=== PATIENT | female | born 1955 | race African-American/Black ===

== ENCOUNTER 2018-02-22 11:27 | Observation (INO) ==
[2018-02-22] MEDS ORDERED: THIAMINE 200 MG/2 ML VIAL IV STA (12:01)
[2018-02-22 12:46] LABS: Basophils # 0.1 10*3/uL (0.0-0.2); Basophils % 0.5 % (0.0-0.8); Eosinophils % 0.2 % (0.00-10.9); Hematocrit 39.4 VOL% (35.7-47.0); Hemoglobin 12.9 GM/DL (12.0-16.0); Immature Granulocytes % 2.5 %; Immature Granulocytes Absolute 0.32 #; Lymphocytes # 2.8 10*3/uL (1.4-4.0); Lymphocytes % 22.2 % (21.3-54.2); Mean Corpuscular HGB Conc 32.7 GM/DL (32-36); Mean Corpuscular Hemoglobin 27 PG (27-34); Mean Corpuscular Volume 82.3 FL (87-102); Mean Platelet Volume 9.5 FL (9.6-12.0); Monocytes # 0.7 10*3/uL (0.11-0.8); Monocytes % 5.8 % (1.7-12.7); Neutrophils # 8.8 10*3/uL (1.4-7.4); Neutrophils % 68.8 % (38.7-73.9); Platelet Count 252 T/CUMM (130-400); Red Blood Count 4.79 MC/CUMM (3.8-5.5); Red Cell Distribution Width 14.4 % (9.3-17.3); White Blood Count 12.8 T/CUMM (4-12)
[2018-02-22 13:17] LABS: Apearance,Urine Slightly Hazy (Clear); Bilirubin,Urine Negative (Negative); Blood, Urine Negative (Negative); Glucose,Urine (UA) >=500 mg/dL (Negative); Ketones,Urine Negative (Negative); Nitrite,Urine Negative (Negative); Protein,Urine Negative; RBC,Urine 5 /HPF (0-4); Squamous Epithelial Cell,Urine Occasional /HPF (0-10); Urine Color Yellow (Yellow); Urine Specific Gravity 1.007 (1.001-1.035); Urine Urobilinogen < 2.0 EU/DL (0.2-1.0); WBC,Urine 56 /HPF (0-6)
[2018-02-22 13:18] LABS: Folate 14.3 NG/ML (5.4-24.0)
[2018-02-22 13:23] LABS: Barbiturates Screen,Urine Negative (Negative); Benzodiazepines Screen,Urine Negative (Negative); Cannabinoid Screen,Urine Positive (Negative); Opiate Screen,Urine Negative (Negative); Phencyclidine Screen,Urine Negative (Negative)
[2018-02-22 13:41] LABS: Alanine Aminotransferase 20 U/L (13-56); Albumin 3.1 G/DL (3.4-5.0); Alkaline Phosphatase 107 U/L (45-117); Aspartate Amino Transferase 19 U/L (0-37); Bilirubin,Total < 0.39 MG/DL (0.2-1.0); Blood Urea Nitrogen 8 MG/DL (7-18); Calcium 8.4 MG/DL (8.5-10.1); Glucose 185 MG/DL (74-106); Osmolality,Calculated 272.1 MOS/KG (273-304); Potassium 4.4 MMOL/L (3.5-5.1); Sodium 135 MMOL/L (136-145); Total Protein 5.8 G/DL (6.4-8.3)
[2018-02-22 13:54] LABS: Sedimentation Rate-Westergren 20 MM/HR (0-30)
[2018-02-22] MEDS ORDERED: ACETAMINOPHEN 325 MG TABLET PO PRN (18:08)
[2018-02-22] MEDS ORDERED: NICOTINE 21 MG/24 HR PATCH TRANSDERM PRN (18:08)
[2018-02-22] MEDS ORDERED: PROMETHAZINE 25 MG/1 ML VIAL IM PRN (18:08)
[2018-02-22] MEDS ORDERED: cefTRIAXone 1,000 MG in SYRINGE 1 EACH IV STA (18:13)
[2018-02-22 18:52] LABS: % Iron Saturation 28.3 % (18-50); Ferritin 163.3 ng/ml (8-252)
[2018-02-22 18:58] LABS: Thyroid Stimulating Hormone 0.397 uIU/ml (0.358-3.74)
[2018-02-22] MEDS ORDERED: DEXTROSE 50% 25 GM/50 ML VIAL IV PRN (19:12)
[2018-02-22] MEDS ORDERED: GLUCAGON 1 MG VIAL IM PRN (19:12)
[2018-02-22] MEDS ORDERED: INFLUENZA VIRUS VACCINE 0.5 ML SYRINGE IM ONE (19:21)
[2018-02-22] MEDS: SODIUM CHLORIDE 0.9% 1,000 ML IV SCH (19:22)
[2018-02-22] MEDS: GABAPENTIN 300 MG CAPSULE PO SCH (21:15)
[2018-02-22] MEDS: carBAMazepine 200 MG TABLET PO SCH (21:16)
[2018-02-22] MEDS: HYDROXYCHLOROQUINE 200 MG TABLET PO SCH (21:16)
[2018-02-22] MEDS: CARVEDILOL 6.25 MG TABLET PO SCH (21:16)
[2018-02-22] MEDS: INSULIN LISPRO 100 UNIT/ML SUBCUT SCH (21:37)
[2018-02-23 05:23] LABS: Basophils # 0.1 10*3/uL (0.0-0.2); Basophils % 0.7 % (0.0-0.8); Eosinophils # 0.1 10*3/uL (0.0-0.87); Hematocrit 37.3 VOL% (35.7-47.0); Hemoglobin 11.9 GM/DL (12.0-16.0); Immature Granulocytes % 1.9 %; Immature Granulocytes Absolute 0.22 #; Lymphocytes % 34.6 % (21.3-54.2); Mean Corpuscular HGB Conc 31.9 GM/DL (32-36); Mean Corpuscular Hemoglobin 26 PG (27-34); Mean Corpuscular Volume 82.7 FL (87-102); Mean Platelet Volume 9.6 FL (9.6-12.0); Monocytes % 8.6 % (1.7-12.7); Neutrophils # 6.1 10*3/uL (1.4-7.4); Neutrophils % 53.2 % (38.7-73.9); Platelet Count 240 T/CUMM (130-400); Red Blood Count 4.51 MC/CUMM (3.8-5.5); Red Cell Distribution Width 14.5 % (9.3-17.3); White Blood Count 11.5 T/CUMM (4-12)
[2018-02-23 05:38] LABS: Alanine Aminotransferase 15 U/L (13-56); Albumin 2.4 G/DL (3.4-5.0); Alkaline Phosphatase 91 U/L (45-117); Aspartate Amino Transferase 14 U/L (0-37); Bilirubin,Total < 0.39 MG/DL (0.2-1.0); Blood Urea Nitrogen 7 MG/DL (7-18); Calcium 7.9 MG/DL (8.5-10.1); Cholesterol 227 MG/DL (50-200); Glucose 177 MG/DL (74-106); HDL Cholesterol 95 MG/DL (40-60); Osmolality,Calculated 274.8 MOS/KG (273-304); Potassium 3.9 MMOL/L (3.5-5.1); Risk Ratio 2.39; Sodium 137 MMOL/L (136-145); Total Protein 5.1 G/DL (6.4-8.3); Triglycerides 212 MG/DL (2-150); VLDL CHOLESTEROL 42.4 MG/DL
[2018-02-23] MEDS ORDERED: MAGNESIUM SULF RIDER 2 GM in PREMIX 1 EACH IV ONE (07:12)
[2018-02-23] MEDS: INSULIN LISPRO 100 UNIT/ML SUBCUT SCH ×4 (10:55→21:49)
[2018-02-23] MEDS: GABAPENTIN 300 MG CAPSULE PO SCH (10:59)
[2018-02-23] MEDS: HYDROXYCHLOROQUINE 200 MG TABLET PO SCH ×2 (11:00→21:41)
[2018-02-23] MEDS: amLODIPine 10 MG TABLET PO SCH (11:00)
[2018-02-23] MEDS: predniSONE 20 MG TABLET PO SCH (11:00)
[2018-02-23] MEDS: valACYclovir 500 MG TABLET PO SCH (11:00)
[2018-02-23] MEDS: CARVEDILOL 6.25 MG TABLET PO SCH ×2 (11:00→17:37)
[2018-02-23] MEDS: sitaGLIPtin 100 MG TABLET PO SCH (11:00)
[2018-02-23] MEDS: carBAMazepine 200 MG TABLET PO SCH ×2 (11:01→21:41)
[2018-02-23] MEDS: PARoxetine 20 MG TABLET PO SCH (11:01)
[2018-02-23] MEDS: ATORVASTATIN 80 MG TABLET PO SCH (11:01)
[2018-02-23] MEDS: LOSARTAN 50 MG TABLET PO SCH (11:01)
[2018-02-23] MEDS: ASPIRIN EC 325 MG TABLET PO SCH (11:01)
[2018-02-23] MEDS: SODIUM CHLORIDE 0.9% 1,000 ML IV SCH (11:05)
[2018-02-23] MEDS: LIDOCAINE 5% PATCH TRANSDERM SCH (12:38)
[2018-02-23] MEDS ORDERED: cefTRIAXone 1,000 MG in SYRINGE 1 EACH IV SCH (18:00)
[2018-02-24] MEDS: SODIUM CHLORIDE 0.9% 1,000 ML IV SCH (01:22)
[2018-02-24 06:29] LABS: Basophils # 0.1 10*3/uL (0.0-0.2); Basophils % 0.5 % (0.0-0.8); Eosinophils # 0.1 10*3/uL (0.0-0.87); Eosinophils % 0.9 % (0.00-10.9); Hematocrit 38.4 VOL% (35.7-47.0); Hemoglobin 12.1 GM/DL (12.0-16.0); Immature Granulocytes % 1.4 %; Immature Granulocytes Absolute 0.14 #; Lymphocytes # 2.5 10*3/uL (1.4-4.0); Lymphocytes % 24.6 % (21.3-54.2); Mean Corpuscular HGB Conc 31.5 GM/DL (32-36); Mean Corpuscular Hemoglobin 26 PG (27-34); Mean Corpuscular Volume 82.9 FL (87-102); Mean Platelet Volume 10.1 FL (9.6-12.0); Monocytes # 0.8 10*3/uL (0.11-0.8); Monocytes % 8.1 % (1.7-12.7); Neutrophils # 6.6 10*3/uL (1.4-7.4); Neutrophils % 64.5 % (38.7-73.9); Platelet Count 264 T/CUMM (130-400); Red Blood Count 4.63 MC/CUMM (3.8-5.5); Red Cell Distribution Width 14.6 % (9.3-17.3); White Blood Count 10.2 T/CUMM (4-12)
[2018-02-24 06:58] LABS: Osmolality,Calculated 276.4 MOS/KG (273-304); Potassium 3.8 MMOL/L (3.5-5.1)
[2018-02-24] MEDS ORDERED: carBAMazepine 200 MG TABLET PO SCH (07:28)
[2018-02-24] MEDS: INSULIN LISPRO 100 UNIT/ML SUBCUT SCH ×2 (08:47→11:33)
[2018-02-24] MEDS: LIDOCAINE 5% PATCH TRANSDERM SCH (09:54)
[2018-02-24] MEDS: sitaGLIPtin 100 MG TABLET PO SCH (09:55)
[2018-02-24] MEDS: PARoxetine 20 MG TABLET PO SCH (09:55)
[2018-02-24] MEDS: HYDROXYCHLOROQUINE 200 MG TABLET PO SCH (09:55)
[2018-02-24] MEDS: predniSONE 20 MG TABLET PO SCH (09:55)
[2018-02-24] MEDS: ATORVASTATIN 80 MG TABLET PO SCH (09:55)
[2018-02-24] MEDS: valACYclovir 500 MG TABLET PO SCH (09:55)
[2018-02-24] MEDS: CARVEDILOL 6.25 MG TABLET PO SCH (09:55)
[2018-02-24] MEDS: ASPIRIN EC 325 MG TABLET PO SCH (09:56)
[2018-02-24] MEDS: amLODIPine 10 MG TABLET PO SCH (09:56)
[2018-02-24] MEDS: LOSARTAN 50 MG TABLET PO SCH (09:56)
[2018-02-24 12:02] VITALS: BP 179/71
== END 2018-02-24 12:51 | disposition home or self-care (01) ==
LOC: N.ED 11:27 → N.EDINP 11:27 → N.2E 19:12
PROVIDERS: ADMIT Internal Medicine; ATTEND Internal Medicine

== ENCOUNTER 2021-12-17 15:55 | Inpatient (IN) ==
[2021-12-17] MEDS ORDERED: SODIUM CHLORIDE 0.9% 1,000 ML IV STA (17:35)
[2021-12-17] MEDS ORDERED: ONDANSETRON 4 MG/2 ML VIAL IV ONE (17:35)
[2021-12-17] MEDS ORDERED: ACETAMINOPHEN 325 MG TABLET PO ONE (17:35)
[2021-12-17 17:49] LABS: Basophils # 0.1 10*3/uL (0.0-0.2); Basophils % 0.3 % (0.0-0.8); Hemoglobin 12.1 GM/DL (12.0-16.0); Immature Granulocytes % 0.9 %; Lymphocytes # 1.5 10*3/uL (1.4-4.0); Lymphocytes % 7.2 % (21.3-54.2); Mean Corpuscular HGB Conc 33.6 GM/DL (32-36); Mean Platelet Volume 9.6 FL (9.6-12.0); Monocytes # 2.6 10*3/uL (0.11-0.8); Monocytes % 12.2 % (1.7-12.7); Neutrophils % 79.4 % (38.7-73.9); Platelet Count 364 T/CUMM (130-400); Red Blood Count 4.39 MC/CUMM (3.8-5.5); Red Cell Distribution Width 14.6 % (9.3-17.3); White Blood Count 21.4 T/CUMM (4-12)
[2021-12-17 18:04] LABS: Albumin 2.5 G/DL (3.4-5.0); Bilirubin,Total 0.5 MG/DL (0.20-1.00); Calcium 9.1 MG/DL (8.5-10.1); Osmolality,Calculated 263.4 MOS/KG (273-304); Potassium 3.3 MMOL/L (3.5-5.1); Total Protein 6.3 G/DL (6.4-8.2)
[2021-12-17 18:07] LABS: INR 1.1; PT Patient Result 12.4 SECS (10.1-12.1)
[2021-12-17 18:18] LABS: Band Neutrophils 5 % (0-10); Lymphocytes 7 % (20-55); Platelet Estimate Normal; Total Cells Counted 100
[2021-12-17] MEDS ORDERED: DEXAMETHASONE 4 MG/1 ML VIAL IV STA (18:37)
[2021-12-17] MEDS ORDERED: cefTRIAXone 1,000 MG in SODIUM CHLORIDE 0.9% 100 ML IV STA (18:37)
[2021-12-17] MEDS ORDERED: AZITHROMYCIN INJ 500 MG in SODIUM CHLORIDE 0.9% 250 ML IV STA (18:37)
[2021-12-17] MEDS ORDERED: guaiFENesin/DM ER 600-30 MG TABLET PO PRN (20:16)
[2021-12-17] MEDS ORDERED: diphenhydrAMINE CAP 25 MG CAPSULE PO PRN (20:16)
[2021-12-17] MEDS ORDERED: GLUCAGON 1 MG VIAL IM PRN (20:16)
[2021-12-17] MEDS ORDERED: hydrALAZINE 20 MG/1 ML VIAL IV PRN (20:16)
[2021-12-17] MEDS ORDERED: ONDANSETRON 4 MG/2 ML VIAL IV PRN (20:16)
[2021-12-17] MEDS ORDERED: NICOTINE 21 MG/24 HR PATCH TRANSDERM PRN (20:16)
[2021-12-17] MEDS ORDERED: ZALEPLON 5 MG CAPSULE PO PRN (20:16)
[2021-12-17] MEDS ORDERED: DEXTROSE 10% 250 ML BAG IV PRN (20:20)
[2021-12-17] MEDS ORDERED: REMDESIVIR 200 MG in SODIUM CHLORIDE 0.9% 210 ML IV ONE (21:00)
[2021-12-17] MEDS: ENOXAPARIN 40 MG/0.4 ML SYRINGE SUBCUT SCH (22:45)
[2021-12-17] MEDS ORDERED: POTASSIUM CHLORIDE 20 MEQ TABLET PO ONE (23:29)
[2021-12-18] MEDS: ALBUTEROL/IPRATROPIUM 3 ML NEB RESP TX SCH ×5 (03:11→23:49)
[2021-12-18 05:44] LABS: Basophils # 0.1 10*3/uL (0.0-0.2); Basophils % 0.3 % (0.0-0.8); Eosinophils % 0.1 % (0.00-10.9); Hematocrit 36.6 VOL% (35.7-47.0); Immature Granulocytes % 1.2 %; Immature Granulocytes Absolute 0.23 #; Lymphocytes # 1.1 10*3/uL (1.4-4.0); Lymphocytes % 5.6 % (21.3-54.2); Mean Corpuscular HGB Conc 32.8 GM/DL (32-36); Mean Platelet Volume 9.9 FL (9.6-12.0); Monocytes # 1.1 10*3/uL (0.11-0.8); Monocytes % 5.4 % (1.7-12.7); Neutrophils % 87.4 % (38.7-73.9); Platelet Count 387 T/CUMM (130-400); Red Blood Count 4.41 MC/CUMM (3.8-5.5); Red Cell Distribution Width 14.7 % (9.3-17.3); White Blood Count 19.6 T/CUMM (4-12)
[2021-12-18 06:05] LABS: Calcium 9.2 MG/DL (8.5-10.1); Potassium 4.1 MMOL/L (3.5-5.1)
[2021-12-18] MEDS ORDERED: REMDESIVIR 200 MG in SODIUM CHLORIDE 0.9% 210 ML IV ONE (09:00)
[2021-12-18] MEDS: carvediloL 6.25 MG TABLET PO SCH ×2 (09:12→21:14)
[2021-12-18] MEDS: LOSARTAN 50 MG TABLET PO SCH (09:12)
[2021-12-18] MEDS: BISACODYL 5 MG TABLET PO SCH (09:12)
[2021-12-18] MEDS: PANTOPRAZOLE 40 MG TABLET PO SCH (09:12)
[2021-12-18] MEDS: amLODIPine 10 MG TABLET PO SCH (09:12)
[2021-12-18] MEDS: ATORVASTATIN 80 MG TABLET PO SCH (09:12)
[2021-12-18] MEDS: KETOROLAC 30 MG/1 ML VIAL IV PRN (13:42)
[2021-12-18] MEDS ORDERED: MAGNESIUM SULF RIDER 4 GM/100 ML PREMIX IV PRN (14:27)
[2021-12-18] MEDS ORDERED: MAGNESIUM SULF RIDER 2 GM/50 ML PREMIX IV PRN (14:27)
[2021-12-18] MEDS: MORPHINE 2 MG/1 ML SYRINGE IV PRN ×2 (17:08→21:40)
[2021-12-18] MEDS: ENOXAPARIN 40 MG/0.4 ML SYRINGE SUBCUT SCH ×2 (21:13→21:14)
[2021-12-18] MEDS: ACETAMINOPHEN 325 MG TABLET PO PRN (21:14)
[2021-12-18] MEDS: cefTRIAXone 1,000 MG in SODIUM CHLORIDE 0.9% 100 ML IV SCH (21:15)
[2021-12-18] MEDS: AZITHROMYCIN INJ 500 MG in SODIUM CHLORIDE 0.9% 250 ML IV SCH (22:34)
[2021-12-19 05:43] LABS: Basophils % 0.3 % (0.0-0.8); Eosinophils # 0.1 10*3/uL (0.0-0.87); Eosinophils % 0.8 % (0.00-10.9); Hematocrit 33.5 VOL% (35.7-47.0); Hemoglobin 11.1 GM/DL (12.0-16.0); Immature Granulocytes Absolute 0.15 #; Lymphocytes # 1.4 10*3/uL (1.4-4.0); Lymphocytes % 9.8 % (21.3-54.2); Mean Corpuscular HGB Conc 33.1 GM/DL (32-36); Mean Corpuscular Volume 82.9 FL (87-102); Mean Platelet Volume 9.7 FL (9.6-12.0); Monocytes # 1.7 10*3/uL (0.11-0.8); Monocytes % 11.8 % (1.7-12.7); Neutrophils % 76.3 % (38.7-73.9); Platelet Count 380 T/CUMM (130-400); Red Blood Count 4.04 MC/CUMM (3.8-5.5); Red Cell Distribution Width 14.8 % (9.3-17.3); White Blood Count 14.4 T/CUMM (4-12)
[2021-12-19 05:59] LABS: Calcium 8.5 MG/DL (8.5-10.1); Osmolality,Calculated 275.7 MOS/KG (273-304); Potassium 3.9 MMOL/L (3.5-5.1)
[2021-12-19] MEDS: ALBUTEROL/IPRATROPIUM 3 ML NEB RESP TX SCH ×3 (07:05→19:40)
[2021-12-19] MEDS: BISACODYL 5 MG TABLET PO SCH (10:02)
[2021-12-19] MEDS: amLODIPine 10 MG TABLET PO SCH (10:03)
[2021-12-19] MEDS: PANTOPRAZOLE 40 MG TABLET PO SCH (10:03)
[2021-12-19] MEDS: carvediloL 6.25 MG TABLET PO SCH ×2 (10:03→20:58)
[2021-12-19] MEDS: ATORVASTATIN 80 MG TABLET PO SCH (10:03)
[2021-12-19] MEDS: REMDESIVIR 100 MG in SODIUM CHLORIDE 0.9% 100 ML IV SCH (10:03)
[2021-12-19] MEDS: LOSARTAN 50 MG TABLET PO SCH (10:03)
[2021-12-19] MEDS: KETOROLAC 30 MG/1 ML VIAL IV PRN (10:14)
[2021-12-19] MEDS: ACETAMINOPHEN 325 MG TABLET PO PRN ×2 (11:27→20:50)
[2021-12-19] MEDS: ENOXAPARIN 40 MG/0.4 ML SYRINGE SUBCUT SCH (20:51)
[2021-12-19] MEDS: cefTRIAXone 1,000 MG in SODIUM CHLORIDE 0.9% 100 ML IV SCH (20:51)
[2021-12-19] MEDS: AZITHROMYCIN INJ 500 MG in SODIUM CHLORIDE 0.9% 250 ML IV SCH (22:45)
[2021-12-20] MEDS: ALBUTEROL/IPRATROPIUM 3 ML NEB RESP TX SCH ×4 (00:25→20:05)
[2021-12-20 08:25] LABS: Basophils # 0.1 10*3/uL (0.0-0.2); Basophils % 0.5 % (0.0-0.8); Eosinophils # 0.1 10*3/uL (0.0-0.87); Eosinophils % 1.3 % (0.00-10.9); Hematocrit 35.9 VOL% (35.7-47.0); Hemoglobin 11.8 GM/DL (12.0-16.0); Immature Granulocytes % 0.6 %; Immature Granulocytes Absolute 0.06 #; Lymphocytes # 1.3 10*3/uL (1.4-4.0); Lymphocytes % 12.1 % (21.3-54.2); Mean Corpuscular HGB Conc 32.9 GM/DL (32-36); Mean Corpuscular Volume 81.8 FL (87-102); Mean Platelet Volume 9.2 FL (9.6-12.0); Monocytes # 1.7 10*3/uL (0.11-0.8); Monocytes % 16.1 % (1.7-12.7); Neutrophils % 69.4 % (38.7-73.9); Platelet Count 414 T/CUMM (130-400); Red Blood Count 4.39 MC/CUMM (3.8-5.5); Red Cell Distribution Width 14.7 % (9.3-17.3); White Blood Count 10.7 T/CUMM (4-12)
[2021-12-20 08:46] LABS: Eosinophils 2 % (0-10); Hypochromia Slight; Lymphocytes 9 % (20-55); Microcytosis Slight; Platelet Estimate Adequate; Total Cells Counted 100
[2021-12-20 08:53] LABS: Calcium 8.9 MG/DL (8.5-10.1); Osmolality,Calculated 264.4 MOS/KG (273-304); Potassium 3.5 MMOL/L (3.5-5.1)
[2021-12-20 08:58] LABS: Ferritin 601.8 ng/mL (8-252)
[2021-12-20] MEDS: carvediloL 6.25 MG TABLET PO SCH ×2 (09:30→21:43)
[2021-12-20] MEDS: LOSARTAN 50 MG TABLET PO SCH (09:30)
[2021-12-20] MEDS: REMDESIVIR 100 MG in SODIUM CHLORIDE 0.9% 100 ML IV SCH (09:31)
[2021-12-20] MEDS: BISACODYL 5 MG TABLET PO SCH (09:31)
[2021-12-20] MEDS: amLODIPine 10 MG TABLET PO SCH (09:31)
[2021-12-20] MEDS: ATORVASTATIN 80 MG TABLET PO SCH (09:31)
[2021-12-20] MEDS: PANTOPRAZOLE 40 MG TABLET PO SCH (09:31)
[2021-12-20] MEDS: DEXAMETHASONE 4 MG TABLET PO SCH (09:31)
[2021-12-20] MEDS: APIXABAN 5 MG TABLET PO SCH ×2 (10:14→21:43)
[2021-12-20] MEDS: ZINC SULFATE 220 MG CAPSULE PO SCH (15:54)
[2021-12-20] MEDS: CHOLECALCIFEROL 5,000 UNIT TABLET PO SCH (21:42)
[2021-12-20] MEDS: ASCORBIC ACID 500 MG TABLET PO SCH (21:42)
[2021-12-20] MEDS: CETIRIZINE 10 MG TABLET PO SCH (21:43)
[2021-12-20] MEDS: KETOROLAC 30 MG/1 ML VIAL IV PRN (21:43)
[2021-12-20] MEDS: FAMOTIDINE 20 MG TABLET PO SCH (21:43)
[2021-12-20] MEDS: cefTRIAXone 1,000 MG in SODIUM CHLORIDE 0.9% 100 ML IV SCH (21:43)
[2021-12-20] MEDS: AZITHROMYCIN INJ 500 MG in SODIUM CHLORIDE 0.9% 250 ML IV SCH (22:57)
[2021-12-21] MEDS: ALBUTEROL/IPRATROPIUM 3 ML NEB RESP TX SCH ×5 (00:35→21:16)
[2021-12-21 05:29] LABS: Basophils # 0.1 10*3/uL (0.0-0.2); Basophils % 0.4 % (0.0-0.8); Eosinophils # 0.1 10*3/uL (0.0-0.87); Eosinophils % 0.7 % (0.00-10.9); Hematocrit 33.4 VOL% (35.7-47.0); Hemoglobin 11.2 GM/DL (12.0-16.0); Immature Granulocytes % 0.9 %; Immature Granulocytes Absolute 0.11 #; Lymphocytes # 1.6 10*3/uL (1.4-4.0); Lymphocytes % 13.5 % (21.3-54.2); Mean Corpuscular HGB Conc 33.5 GM/DL (32-36); Mean Corpuscular Volume 80.9 FL (87-102); Mean Platelet Volume 9.2 FL (9.6-12.0); Monocytes # 1.3 10*3/uL (0.11-0.8); Neutrophils % 73.5 % (38.7-73.9); Platelet Count 411 T/CUMM (130-400); Red Blood Count 4.13 MC/CUMM (3.8-5.5); Red Cell Distribution Width 14.7 % (9.3-17.3); White Blood Count 11.8 T/CUMM (4-12)
[2021-12-21 05:47] LABS: Calcium 8.7 MG/DL (8.5-10.1)
[2021-12-21] MEDS: ATORVASTATIN 80 MG TABLET PO SCH (09:36)
[2021-12-21] MEDS: ZINC SULFATE 220 MG CAPSULE PO SCH (09:36)
[2021-12-21] MEDS: DEXAMETHASONE 4 MG TABLET PO SCH (09:36)
[2021-12-21] MEDS: ASCORBIC ACID 500 MG TABLET PO SCH ×2 (09:36→21:08)
[2021-12-21] MEDS: BISACODYL 5 MG TABLET PO SCH (09:36)
[2021-12-21] MEDS: LOSARTAN 50 MG TABLET PO SCH (09:37)
[2021-12-21] MEDS: FAMOTIDINE 20 MG TABLET PO SCH ×2 (09:37→21:08)
[2021-12-21] MEDS: amLODIPine 10 MG TABLET PO SCH (09:37)
[2021-12-21] MEDS: CHOLECALCIFEROL 5,000 UNIT TABLET PO SCH (09:38)
[2021-12-21] MEDS: carvediloL 6.25 MG TABLET PO SCH ×2 (09:38→22:16)
[2021-12-21] MEDS: REMDESIVIR 100 MG in SODIUM CHLORIDE 0.9% 100 ML IV SCH (09:40)
[2021-12-21] MEDS: CETIRIZINE 10 MG TABLET PO SCH (21:08)
[2021-12-21] MEDS: cefTRIAXone 1,000 MG in SODIUM CHLORIDE 0.9% 100 ML IV SCH (21:21)
[2021-12-21] MEDS: AZITHROMYCIN INJ 500 MG in SODIUM CHLORIDE 0.9% 250 ML IV SCH (22:16)
[2021-12-22] MEDS: ALBUTEROL/IPRATROPIUM 3 ML NEB RESP TX SCH ×3 (01:25→13:29)
[2021-12-22 05:25] LABS: Basophils % 0.1 % (0.0-0.8); Eosinophils % 0.1 % (0.00-10.9); Hematocrit 33.7 VOL% (35.7-47.0); Hemoglobin 11.1 GM/DL (12.0-16.0); Immature Granulocytes % 1.3 %; Immature Granulocytes Absolute 0.17 #; Lymphocytes # 1.4 10*3/uL (1.4-4.0); Lymphocytes % 10.5 % (21.3-54.2); Mean Corpuscular HGB Conc 32.9 GM/DL (32-36); Mean Corpuscular Volume 81.8 FL (87-102); Mean Platelet Volume 9.6 FL (9.6-12.0); Monocytes # 0.9 10*3/uL (0.11-0.8); Monocytes % 6.8 % (1.7-12.7); Neutrophils % 81.2 % (38.7-73.9); Platelet Count 460 T/CUMM (130-400); Red Blood Count 4.12 MC/CUMM (3.8-5.5); White Blood Count 13.6 T/CUMM (4-12)
[2021-12-22 05:42] LABS: Calcium 9.1 MG/DL (8.5-10.1); Osmolality,Calculated 277.8 MOS/KG (273-304); Potassium 4.2 MMOL/L (3.5-5.1)
[2021-12-22] MEDS ORDERED: DIAZEPAM 5 MG TABLET PO ONE (07:42)
[2021-12-22] MEDS ORDERED: SODIUM CHLORIDE 0.45% 1,000 ML IV SCH (08:00)
[2021-12-22] MEDS: DEXAMETHASONE 4 MG TABLET PO SCH (08:53)
[2021-12-22] MEDS: LOSARTAN 50 MG TABLET PO SCH (08:54)
[2021-12-22] MEDS: FAMOTIDINE 20 MG TABLET PO SCH ×2 (08:54→22:20)
[2021-12-22] MEDS: carvediloL 6.25 MG TABLET PO SCH ×2 (08:54→22:20)
[2021-12-22] MEDS: amLODIPine 10 MG TABLET PO SCH (08:54)
[2021-12-22] MEDS: CHOLECALCIFEROL 5,000 UNIT TABLET PO SCH (08:54)
[2021-12-22] MEDS: BISACODYL 5 MG TABLET PO SCH (08:54)
[2021-12-22] MEDS: ATORVASTATIN 80 MG TABLET PO SCH (08:54)
[2021-12-22] MEDS: ZINC SULFATE 220 MG CAPSULE PO SCH (08:54)
[2021-12-22] MEDS: ASCORBIC ACID 500 MG TABLET PO SCH ×2 (08:58→22:20)
[2021-12-22] MEDS: REMDESIVIR 100 MG in SODIUM CHLORIDE 0.9% 100 ML IV SCH (10:36)
[2021-12-22] MEDS ORDERED: fentaNYL 100 MCG/2 ML VIAL IV ONE (11:00)
[2021-12-22] MEDS ORDERED: MIDAZOLAM 2 MG/2 ML VIAL IV ONE (11:00)
[2021-12-22] MEDS ORDERED: ALBUTEROL INHALER 18 GM INH SCH (19:00)
[2021-12-22] MEDS: cefTRIAXone 1,000 MG in SODIUM CHLORIDE 0.9% 100 ML IV SCH (22:19)
[2021-12-22] MEDS: CETIRIZINE 10 MG TABLET PO SCH (22:20)
[2021-12-22] MEDS: AZITHROMYCIN INJ 500 MG in SODIUM CHLORIDE 0.9% 250 ML IV SCH (23:56)
[2021-12-23 08:17] LABS: Basophils % 0.2 % (0.0-0.8); Eosinophils % 0.1 % (0.00-10.9); Hemoglobin 11.8 GM/DL (12.0-16.0); Immature Granulocytes % 1.2 %; Immature Granulocytes Absolute 0.22 #; Lymphocytes # 2.3 10*3/uL (1.4-4.0); Lymphocytes % 12.8 % (21.3-54.2); Mean Corpuscular HGB Conc 33.7 GM/DL (32-36); Mean Corpuscular Volume 81.4 FL (87-102); Mean Platelet Volume 9.3 FL (9.6-12.0); Monocytes # 1.1 10*3/uL (0.11-0.8); Monocytes % 6.4 % (1.7-12.7); Neutrophils % 79.3 % (38.7-73.9); Platelet Count 462 T/CUMM (130-400); Red Cell Distribution Width 15.1 % (9.3-17.3); White Blood Count 17.7 T/CUMM (4-12)
[2021-12-23] MEDS: LOSARTAN 50 MG TABLET PO SCH (08:17)
[2021-12-23] MEDS: carvediloL 6.25 MG TABLET PO SCH (08:17)
[2021-12-23] MEDS: APIXABAN 5 MG TABLET PO SCH (08:18)
[2021-12-23] MEDS: DEXAMETHASONE 4 MG TABLET PO SCH (08:18)
[2021-12-23] MEDS: BISACODYL 5 MG TABLET PO SCH (08:18)
[2021-12-23] MEDS: CHOLECALCIFEROL 5,000 UNIT TABLET PO SCH (08:18)
[2021-12-23] MEDS: ATORVASTATIN 80 MG TABLET PO SCH (08:18)
[2021-12-23] MEDS: FAMOTIDINE 20 MG TABLET PO SCH (08:18)
[2021-12-23] MEDS: ASCORBIC ACID 500 MG TABLET PO SCH (08:18)
[2021-12-23] MEDS: amLODIPine 10 MG TABLET PO SCH (08:18)
[2021-12-23] MEDS: ZINC SULFATE 220 MG CAPSULE PO SCH (08:18)
[2021-12-23 08:43] VITALS: BP 162/65
[2021-12-24] MEDS ORDERED: DEXAMETHASONE 4 MG TABLET PO SCH (09:00)
== END 2021-12-23 13:45 | disposition home health service (06) | DRG 177 ==
LOC: N.ED 15:55 → SUATTDRO 20:16 → N.TELEN 20:16
PROVIDERS: ADMIT Hospitalist; ATTEND Hospitalist